=== PATIENT | female | born 1965 | race African-American/Black ===

== ENCOUNTER 2016-12-17 09:39 | Emergency (ER) ==
[2016-12-17] MEDS ORDERED: ASPIRIN PO STA (10:37)
--- NOTE | 2016-12-17 10:47 | PROVIDER DOCUMENTATION ---
HPI-Syncope/Dizziness - General Source: patient - History of Present Illness-Syncope/Dizzy Onset/Duration: reports: abrupt, last night Timing: reports: still present, improving Current Symptoms: reports: weakness. denies: nausea, vomiting, dizzy, blurred vision Recently Seen Here or By Another Healthcare Provider: No - Dizziness Severity in ED: reports: mild Dizziness Related Current/Associated Symptoms: reports: weakness, lightheaded, dizzy, lightheaded, sense of spinning. denies: nausea/vomiting, headache, headache, blurred vision, syncope, sense of confusion Any recent trauma/injury?: reports: none Modifying Factors: improves with: nothing Patient usually:: reports: walks without assistance - General Chief Complaint: Dizziness Stated Complaint: DIZZINESS/ELEVATED BP/HEADACHE Time Seen by Provider: 12/17/16 10:29 Allergies/Adverse Reactions: Patient Allergies Allergy/AdvReac Type Severity Reaction Status Date / Time No Known Allergies Allergy Verified 12/17/16 10:07 Home Medications: Home Medication List Medication Instructions Recorded Confirmed Last Taken Type Hydrochlorothiazide 12.5 mg PO DAILY 08/08/14 12/17/16 12/17/16 History Losartan Potassium 50 mg PO DAILY 08/08/14 12/17/16 12/17/16 History Pantoprazole [Protonix] 40 mg PO DAILY@0700 #20 tablet 12/17/16 Unknown Rx Sucralfate [Carafate] 1 gm PO AC + HS #30 tablet 12/17/16 Unknown Rx - History of Present Illness-Syncope/Dizzy Nature of Presenting Problem: Patient is a 51 y/o F that presents to the ER after having an episode of dizziness, weakness, and sweating. Patients episode happened abruptly last pm and lasted 2 hours. She denies having chest pain or shortness of breath. Patient had no focal neurological issues. Today she has some dizziness but more fatigue. She felt it might have been her acid reflux (Arnulfo Kurtz) Review of Systems - Adult - REVIEW OF SYSTEMS - ADULT Constitutional: reports: betsy. denies: chills, fever Eyes: denies: dry eyes, decreased vision, blurred vision, double vision, eye pain, redness Ears, Nose, Mouth & Throat: denies: ear discharge, ear pain, sinus problem, throat pain Cardiovascular: denies: chest pain, palpitations, syncope Respiratory: denies: dyspnea on exertion, shortness of breath, wheezing Gastrointestinal: reports: frequent heartburn. denies: abdominal pain, diarrhea , nausea, vomiting Genitourinary: reports: no symptoms reported Musculoskeletal: denies: back pain, joint pain, neck pain Integumentary: reports: no symptoms reported Neurological: reports: dizziness/vertigo. denies: headache/migraines, loss of balance, syncope Psychiatric: reports: no symptoms reported Endocrine: reports: no symptoms reported Hematologic/Lymphatic: reports: no symptoms reported Allergic/Immunologic: reports: no symptoms reported All Other Systems: Reviewed and Negative Past History - Adult - PAST MEDICAL HISTORY-ADULT Review of Records: reports: Old Records Reviewed, Nursing Assessment Review, Medications Reviewed Cardiovascular: reports: HTN - PRIOR SURGERIES/PROCEDURES Surgical/Procedure History: reports: hysterectomy, - IMMUNIZATION STATUS Childhood Immunizations: See Nurse Assessment Flu Vaccine: See Nurse Assessment - FAMILY HISTORY Family History: CAD over 55 yo - SOCIAL HISTORY Smoking: non-smoker Living Situation: family Physical Exam-General - PHYSICAL EXAM-ADULT Initial Vital Signs Reviewed: Yes - CONSTITUTIONAL General Appearance: appears well, alert, no apparent distress - EYES Eyes: PERRL/EOMI, pink conjunctivae - HEAD, EARS, NOSE, MOUTH & THROAT HENMT: normocephalic/atraumatic, moist mucous membranes, normal ENT inspection, TMs normal, pharynx normal - NECK Neck: non-tender, full range of motion, normal inspection. 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 as tested, no motor/sensory deficits - PSYCHIATRIC Psych/Mental Status: normal mood/affect, normal thought content, normal thought process, oriented x 3 Progress - EKG 1 Time of EKG reading by physician:: 09:58 EKG Read and Signed by:: Del Munroe EKG Interpretation (*Must complete 3 of following elements*): Abnormal Rate: 87 Rhythm: NSR [place]: normal QRS: normal ST Wave: non-specific ST changes Comments: LAE - XRAY 1 XRAY Study: Chest Impression: Abnormal XRAY Interpretation: stable R light nodule - PLAN OF CARE/RESULTS Progress/Plan/Lab Results: plan of care-ekg, labs, cxr Vital Signs Temp Pulse Resp BP Pulse Ox 12/17/16 09:50 98.3 F 97 H 18 155/93 100 No Known Allergies Allergy (Verified 12/17/16 10:07) Hydrochlorothiazide 12.5 mg PO DAILY 08/08/14 Losartan Potassium 50 mg PO DAILY 08/08/14 Laboratory 12/17/16 12/17/16 12/17/16 10:58 10:58 10:58 WBC RBC Hgb Hct MCV MCH MCHC RDW Std Deviation Plt Count MPV Immature Gran % (Auto) Neut % (Auto) Lymph % (Auto) [place] % (Auto) Eos % (Auto) Baso % (Auto) Immature Gran # (Auto) Neut # (Auto) Lymph # (Auto) [place] # (Auto) Eos # (Auto) Baso # (Auto) Sodium 142 Potassium 3.5 Chloride 102 Carbon Dioxide 26 Anion Gap 14 BUN 14 Creatinine 1.0 H Estimated GFR/1.73 m2 > 60 BUN/Creatinine Ratio 14 Glucose 76 Calculated Osmolality 282 Calcium 9.4 Magnesium 1.8 Total Bilirubin 0.31 AST 22 ALT 16 Alkaline Phosphatase 56 Creatine Kinase 595 H Troponin T < 0.010 [id number]-[id number] Pept 94 Total Protein 7.6 Albumin 4.0 Globulin 3.6 Albumin/Globulin Ratio 1.1 12/17/16 10:58 WBC 5.22 RBC 4.55 Hgb 13.0 Hct 38.8 MCV 85.3 MCH 28.6 MCHC 33.5 RDW Std Deviation 14.1 Plt Count 287 MPV 9.6 Immature Gran % (Auto) 0.0 Neut % (Auto) 59.0 Lymph % (Auto) 33.1 [place] % (Auto) 6.5 Eos % (Auto) 1.0 Baso % (Auto) 0.4 Immature Gran # (Auto) 0.00 Neut # (Auto) 3.08 Lymph # (Auto) 1.73 [place] # (Auto) 0.34 Eos # (Auto) 0.05 Baso # (Auto) 0.02 Sodium Potassium Chloride Carbon Dioxide Anion Gap BUN Creatinine Estimated GFR/1.73 m2 BUN/Creatinine Ratio Glucose Calculated Osmolality Calcium Magnesium Total Bilirubin AST ALT Alkaline Phosphatase Creatine Kinase Troponin T Ich-W-Qozjyzuamuy Pept Total Protein Albumin Globulin Albumin/Globulin Ratio Orders Category Date Time Status Cardiac Monitoring DIRECTED Care 12/17/16 10:37 Active Saline Loc NOW Care 12/17/16 10:37 Active CHEST-2 VIEWS [RAD] Stat Exams 12/17/16 10:37 Draft CBC WITH ELECTRONIC DIFF [HEME] Stat Lab 12/17/16 10:58 Completed CK PROFILE [SP CHEM] Stat Lab 12/17/16 10:58 Results COMPREHENSIVE METABOLIC PANEL [CHEM] Stat Lab 12/17/16 10:58 Results MAGNESIUM [CHEM] Stat Lab 12/17/16 10:58 Results PRO B-NATRIURETIC PEPTIDE Stat Lab 12/17/16 10:58 Completed TROPONIN T Stat Lab 12/17/16 10:58 Completed Aspirin Med 12/17/16 10:37 Discontinued 325 mg PO STAT STA EKG [EKG] Stat Ther 12/17/16 09:55 Ordered pt will be d/c home f/u with pcp( for outpatient stress), rx given, pt was clinically stable and understood results/instructions. She had no symptoms in the ER. (Arnulfo Kurtz) 21:25 The patient has remained asymptomatic throughout her ED stay. The findings have been discussed with the patient. Her troponin is negative. The EKG is unremarkable. Her PERC score is zero indicating that no further w/u for PE need be done. The patient is comfortable with the plan for d/c to home and f /u with Dr Hills. She is advised to discuss setting up an outpatient stress test. (Del Munroe) Departure - Departure Time of Disposition Order: 12:15 Certified Medical Emergency: Emergent - Departure DIAGNOSIS: Dizziness, Atypical chest pain Acid reflux Qualifiers: Esophagitis presence: without esophagitis Qualified Code(s): K21.9 - Gastro- esophageal reflux disease without esophagitis Disposition: HOME 01 Condition: Stable Additional Instructions: f/u with ED Follow Up Instructions: You have been treated by a care provider in the Emergency Department. These instructions are being provided to you so you can have an understanding of how to care for yourself upon discharge. Upon discharge from the Emergency Department, you are responsible for making arrangements for follow-up care by a physician of your choice. Take all prescribed medications as directed. Return to the Emergency Department immediately for any new or worsening symptoms. You may call the Physician Referral phone number at [phone] to obtain a list of Physicians who are taking new patients. Prescriptions: Sucralfate [Carafate] 1 gm PO AC + HS #30 tablet Pantoprazole [Protonix] 40 mg PO DAILY@0700 #20 tablet Referrals: Arnel Hills MD [Primary Care Provider] - (call to set up outpatient stress test) Instructions: Dizziness Attestation - Scribe Verification/Attestation Scribe:: Arnulfo Kurtz Acting as Scribe for:: Del Munroe Scribe documention review:: This chart was documented by a scribe and accurately reflects the service the provider performed and the decisions made by the provider. Physician Attestation - Physician Attestation I, the provider, attest to the following statement:: Del Munroe Physician documentation Attestation:: This documentation recorded by the scribe accurately reflects the service I personally performed and the decisions made by me.
[2016-12-17 11:08] LABS: MANUAL DIFF NEEDED? NO
[2016-12-17 11:15] LABS: BASO% 0.4 % (0.0-0.8); EOS# 0.05 X1000 (0.0-0.7); HEMATOCRIT 38.8 % (37.0-47.0); LYMPH# 1.73 X1000 (1.2-3.4); LYMPH% 33.1 % (20.5-51.1); MCH 28.6 PG (27-31); MCHC 33.5 g/dL (33-37); MCV 85.3 FL (81-99); MONO# 0.34 X1000 (0.11-0.59); MONO% 6.5 % (1.7-9.3); MPV 9.6 FL (7.4-10.4); PLT 287 X1000 (130-400); RBC 4.55 XMIL (4.2-5.4)
--- NOTE | 2016-12-17 11:42 | Diag Imaging Result Document ---
PROCEDURE NAME: CHEST-2 VIEWS - 12/17/2016 FRONTAL AND LATERAL CHEST, TWO VIEWS: COMPARISON: 10/31/2016. FINDINGS: The lungs are well expanded. The heart is not enlarged. The vessels are not distended. No pleural effusions. There is a nodule in the midright lung. This was present on the prior exam and is unchanged. Recent CT revealed calcifications within it. No free air beneath the diaphragm. Mild scoliosis. IMPRESSION: Stable right lung nodule. No acute abnormality. [facility]
[2016-12-17 11:46] LABS: AGAP 14; ALKALINE PHOSPHATASE 56 U/L (32-104); BUN 14 mg/dL (8-22); CALCIUM 9.4 mg/dL (8.8-10.2); CHLORIDE 102 mmol/L (98-107); COSMO 282; GOT 22 U/L (10-30); GPT 16 U/L (10-36); MAGNESIUM 1.8 mg/dL (1.5-2.7); POTASSIUM 3.5 mmol/L (3.5-5.1); SODIUM 142 mmol/L (136-145); TCO2 26 mmol/L (25-35); TOTAL BILIRUBIN 0.31 mg/dL (0.20-1.00); TOTAL PROTEIN 7.6 g/dL (6.3-8.3)
[2016-12-17 11:52] LABS: CK PROFILE 595 U/L (24-173)
[2016-12-17 12:16] LABS: CK INDEX 0.5 (0.0-2.5); CK-MB 2.89 ng/mL (0.0-5.0)
[2016-12-17 12:20] VITALS: BP 142/96
--- NOTE | 2016-12-17 13:46 | EKG Report ---
Test Performed on : 12/17/2016 09:58:45 AM Test Reason : dizziness Blood Pressure : / mmHG Vent. Rate : 087 BPM Atrial Rate : 087 BPM P-R Int : 150 ms QRS Dur : 078 ms QT Int : 368 ms P-R-T Axes : 038 033 005 degrees QTc Int : 442 ms Normal sinus rhythm. Possible Left atrial enlargement Nonspecific T wave abnormality Abnormal ECG When compared with ECG of 01-SEP-2013 07:09, T wave inversion now evident in Inferior leads Unconfirmed Result
== END 2016-12-17 13:02 | disposition home or self-care (01) ==
LOC: ED 09:39
DX: K21.9 Gastro-esophageal reflux disease without esophagitis (principal); R42 Dizziness and giddiness; R07.89 Other chest pain; R53.1 Weakness; R53.83 Other fatigue; R12 Heartburn; I10 Essential (primary) hypertension; Z82.49 Family history of ischemic heart disease and other diseases of the circulatory system; R94.31 Abnormal electrocardiogram [ECG] [EKG]; Z79.899 Other long term (current) drug therapy
CPT/HCPCS: 71020; 80053; 82550; 82553; 83735; 83880; 84484; 85025; 93005

== ENCOUNTER 2016-12-25 01:48 | Emergency (ER) ==
[2016-12-25 01:56] VITALS: BP 139/99
--- NOTE | 2016-12-25 02:12 | PROVIDER DOCUMENTATION ---
HPI-Rash/Wound/ReCheck - General Chief Complaint: Abscess Stated Complaint: ABSCESS Time Seen by Provider: 12/25/16 02:02 Source: patient Allergies/Adverse Reactions: Allergies Allergy/AdvReac Type Severity Reaction Status Date / Time No Known Allergies Allergy Verified 12/25/16 01:59 Home Medications: Home Medication List Medication Instructions Recorded Confirmed Last Taken Type Hydrochlorothiazide 12.5 mg PO QAM 08/08/14 12/25/16 12/24/16 08:00 History Losartan Potassium 50 mg PO QAM 08/08/14 12/25/16 12/24/16 08:00 History Pantoprazole [Protonix] 40 mg PO DAILY@0700 #20 tablet 12/17/16 12/25/16 08:00 Rx Sucralfate [Carafate] 1 gm PO AC + HS #30 tablet 12/17/16 12/25/16 12/24/16 Rx - History of Present Illness-Dermatology Nature of Presenting Problem: 51 Y/O F presents to ED with Abscess. Pt states that the first abscess began on Friday (1 DAY ONSET), on her abdomen RUQ on exam its about 4cm superficial with redness. Abscess also located on Pt buttock. on right side 1cm abscess and on left side .5cm wart. Pt denies any N/V/D, burning or itching. Location: reports: chest, lower extremity Quality: reports: none Severity: reports: mild Onset/Duration: reports: 24 hours ago Timing: reports: still present Context/Associated Symptoms: reports: abscess. denies: sore throat, tingling, tender area Locality of Occurance: Home Review of Systems - Adult - REVIEW OF SYSTEMS - ADULT Constitutional: denies: chills, fever Eyes: reports: no symptoms reported Ears, Nose, Mouth & Throat: reports: no symptoms reported Cardiovascular: reports: no symptoms reported Respiratory: reports: no symptoms reported Gastrointestinal: denies: abdominal pain, diarrhea, nausea, vomiting Genitourinary: reports: no symptoms reported Musculoskeletal: denies: bone pain, back pain Integumentary: reports: other (abscess). denies: hives, nail changes Neurological: reports: no symptoms reported Psychiatric: reports: no symptoms reported Endocrine: reports: no symptoms reported Hematologic/Lymphatic: reports: no symptoms reported Allergic/Immunologic: reports: no symptoms reported All Other Systems: Reviewed and Negative Past History - Adult - PAST MEDICAL HISTORY-ADULT Review of Records: reports: Old Records Reviewed, Nursing Assessment Review, Medications Reviewed, Social history reviewed & non-contributory. Cardiovascular: reports: HTN - PRIOR SURGERIES/PROCEDURES Surgical/Procedure History: reports: hysterectomy, - IMMUNIZATION STATUS Childhood Immunizations: See Nurse Assessment Flu Vaccine: See Nurse Assessment - FAMILY HISTORY Family History: CAD over 55 yo - SOCIAL HISTORY Smoking: non-smoker Substance Use: none/never Alcohol Use Frequency: never Physical Exam-General - CONSTITUTIONAL General Appearance: appears well, alert, no apparent distress - EYES Eyes: PERRL/EOMI, pink conjunctivae, fundi clear, no AV nicking - HEAD, EARS, NOSE, MOUTH & THROAT HENMT: normocephalic/atraumatic, moist mucous membranes, normal ENT inspection, TMs normal, pharynx normal - NECK Neck: non-tender, full range of motion, supple, Brudzinski's sign - RESPIRATORY Respiratory: chest non-tender, lungs clear, normal breath sounds - CARDIOVASCULAR Cardiovascular: normal peripheral pulses, regular rate, rhythm - GASTROINTESTINAL (ABDOMEN) Abdominal Exam: normal bowel sounds, non tender, soft, other (superficial abscess on RUQ, Redness) - GENITOURINARY Rectal Exam: other (SUPERFICIAL ABSCESS ON LEFT AND RIGHT SIDE OF BUTTOCKS) - LYMPHATIC Lymphatic: no adenopathy - MUSCULOSKELETAL Back Exam: normal inspection, no CVA tenderness, no vertebral tenderness Extremity: normal range of motion, non-tender, normal gait - SKIN Integumentary: normal color, normal turgor, warm/dry - NEUROLOGIC Neurologic: 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 [Junra Ds] Med 12/25/16 02:22 Discontinued 2 each PO NOW ONE Vital Signs - 24 hr 12/25/16 01:53 Temperature 97.7 F Pulse Rate 107 H Respiratory 18 Rate Blood Pressure 139/99 O2 Sat by Pulse 99 Oximetry Departure - Departure Time of Disposition Order: 02:23 DIAGNOSIS: Skin eruption Skin abscess Qualifiers: Site of cutaneous abscess: trunk Site of cutaneous abscess of trunk: abdominal wall Qualified Code(s): L02.211 - Cutaneous abscess of abdominal wall Disposition: HOME 01 Certified Medical Emergency: Emergent Condition: Stable Additional Instructions: ED Follow Up Instructions: You have been treated by a care provider in the Emergency Department. These instructions are being provided to you so you can have an understanding of how to care for yourself upon discharge. Upon discharge from the Emergency Department, you are responsible for making arrangements for follow-up care by a physician of your choice. Take all prescribed medications as directed. Return to the Emergency Department immediately for any new or worsening symptoms. You may call the Physician Referral phone number at [phone] to obtain a list of Physicians who are taking new patients. Referrals: Arnel Hills MD [Primary Care Provider] - Forms: Return to School/Parent Work Instructions: Abscess, [id number] Attestation - Scribe Verification/Attestation Scribe:: Payton Chan Acting as Scribe for:: Andrey Arenas Scribe documention review:: This chart was documented by a scribe and accurately reflects the service the provider performed and the decisions made by the provider.
[2016-12-25] MEDS ORDERED: SEPTRA DS PO ONE (02:22)
== END 2016-12-25 02:30 | disposition home or self-care (01) ==
LOC: ED 01:48
DX: L02.211 Cutaneous abscess of abdominal wall (principal); R21 Rash and other nonspecific skin eruption; L02.31 Cutaneous abscess of buttock; I10 Essential (primary) hypertension; Z82.49 Family history of ischemic heart disease and other diseases of the circulatory system; Z84.89 Family history of other specified conditions; Z79.899 Other long term (current) drug therapy